=== PATIENT | female | born 1990 | race Caucasian/White ===

== ENCOUNTER 2017-11-01 06:07 | Emergency (ER) | payer MEDICAID ==
--- NOTE | 2017-11-01 07:13 | ER Document Report ---
ED Medical Screen (RME) - General Chief Complaint: Alcohol Withdrawl Stated Complaint: POSSIBLE WITHDRAWAL Time Seen by Provider: 11/01/17 07:11 Mode of Arrival: Medic Information source: Patient Notes: Pt presents via EMS with c/o methadone withdrawal. Reports no methadone for 3 days, IV Heroin at ~ 2300 last night, 3 bags and suboxone at 0400 this am. Feels like knife is in her back. Denies n/v. TRAVEL OUTSIDE OF THE [place] IN LAST 30 DAYS: No - Related Data Allergies/Adverse Reactions: No Known Drug Allergies Allergy (Verified 11/01/17 07:10) Past Medical History - Past Medical History Cardiac Medical History: Denies: Hx Hypertension, Hx Pulmonary Embolism, Hx Heart Murmur Pulmonary Medical History: Denies: Hx Asthma, Hx Sleep Apnea, Hx Tuberculosis Neurological Medical History: Denies: Hx Cerebrovascular Accident, Hx Seizures Endocrine Medical History: Denies: Hx Hyperthyroidism, Hx Hypothyroidism Renal/ Medical History: Denies: Hx Kidney Stones, Hx Ovarian Cysts, Hx Pelvic Inflammatory Disease Malignancy Medical History: Denies: Hx Breast Cancer, Hx Cervical Cancer, Hx Ovarian Cancer GI Medical History: Denies: Hx Gastroesophageal Reflux Disease, Hx Hiatal Hernia , Hx Ulcer Musculoskeltal Medical History: Denies Hx Fibromyalgia Psychiatric Medical History: Denies: Hx Bipolar Disorder, Hx Depression, Hx Post Traumatic Stress Disorder , Hx Schizophrenia Traumatic Medical History: Denies: Hx Fractures Infectious Medical History: Denies: Hx HIV - Immunizations Hx Diphtheria, Pertussis, Tetanus Vaccination: Yes Physical Exam - Vital signs Vitals: Temp Pulse Resp BP Pulse Ox 97.7 F 79 18 118/74 98 11/01/17 06:20 11/01/17 06:20 11/01/17 06:20 11/01/17 06:20 11/01/17 06:20 Course - Vital Signs Vital signs: Temp Pulse Resp BP Pulse Ox 97.7 F 79 18 118/74 98 11/01/17 06:20 11/01/17 06:20 11/01/17 06:20 11/01/17 06:20 11/01/17 06:20
[2017-11-01] MEDS ORDERED: LORAZEPAM INJ 2 MG/1 ML VIAL IM ONE (07:58)
[2017-11-01] MEDS ORDERED: KETOROLAC TROMETHAMINE 60 MG/2 ML SDV IM ONE (07:59)
[2017-11-01] MEDS ORDERED: CLONIDINE HCL 0.2 MG TABLET PO ONE (07:59)
--- NOTE | 2017-11-01 08:00 | ER Document Report ---
ED General - General Chief Complaint: Alcohol Withdrawl Stated Complaint: POSSIBLE WITHDRAWAL Time Seen by Provider: 11/01/17 07:11 Mode of Arrival: Medic Notes: Patient with long-standing history of heroin abuse. On therapy at this time. Followed by a treatment protocol in [place]. Recently moved to [facility]. Ran out of her medications. Relapsed back into heroin abuse today because she was in too much pain. Supposedly took someone Suboxone as well. This threw her into withdrawal. EMS was called. Patient complaining of back pain and body aches. Denies any excessive vomiting. Denies any suicidal ideation. States that she has resources to help with her drug problem and is just requesting something to help her with these withdrawal symptoms. Is not requesting narcotics or pain medication. No hallucinations. No chest pain. No fever, chills, sweats. Denies any pain out of the ordinary. TRAVEL OUTSIDE OF THE [place] IN LAST 30 DAYS: No - HPI Onset: Just prior to arrival Onset/Duration: Gradual Quality of pain: Achy Severity: Moderate Pain Level: 3 Associated symptoms: None - Related Data Allergies/Adverse Reactions: No Known Drug Allergies Allergy (Verified 11/01/17 07:10) Past Medical History - General Information source: Patient - Social History Smoking Status: Current Every Day Smoker Chew tobacco use (# tins/day): No Frequency of alcohol use: None Drug Abuse: Heroin, Other Family History: DM, Hypertension Patient has suicidal ideation: No Patient has homicidal ideation: No - Past Medical History Cardiac Medical History: Denies: Hx Hypertension, Hx Pulmonary Embolism, Hx Heart Murmur Pulmonary Medical History: Denies: Hx Asthma, Hx Sleep Apnea, Hx Tuberculosis Neurological Medical History: Denies: Hx Cerebrovascular Accident, Hx Seizures Endocrine Medical History: Denies: Hx Hyperthyroidism, Hx Hypothyroidism Renal/ Medical History: Denies: Hx Kidney Stones, Hx Ovarian Cysts, Hx Peritoneal Dialysis, Hx Pelvic Inflammatory Disease Malignancy Medical History: Denies: Hx Breast Cancer, Hx Cervical Cancer, Hx Ovarian Cancer GI Medical History: Denies: Hx Gastroesophageal Reflux Disease, Hx Hiatal Hernia , Hx Ulcer Musculoskeltal Medical History: Denies Hx Fibromyalgia Psychiatric Medical History: Denies: Hx Bipolar Disorder, Hx Depression, Hx Post Traumatic Stress Disorder , Hx Schizophrenia Traumatic Medical History: Denies: Hx Fractures Infectious Medical History: Denies: Hx HIV - Immunizations Hx Diphtheria, Pertussis, Tetanus Vaccination: Yes Review of Systems - Review of Systems Constitutional: See HPI, Other - Drug withdrawal EENT: No symptoms reported Cardiovascular: No symptoms reported Respiratory: No symptoms reported Gastrointestinal: No symptoms reported Genitourinary: No symptoms reported Female Genitourinary: No symptoms reported Musculoskeletal: See HPI, Back pain Skin: No symptoms reported Hematologic/Lymphatic: No symptoms reported Neurological/Psychological: No symptoms reported Physical Exam - Vital signs Vitals: Temp Pulse Resp BP Pulse Ox 97.7 F 79 18 118/74 98 11/01/17 06:20 11/01/17 06:20 11/01/17 06:20 11/01/17 06:20 11/01/17 06:20 Interpretation: Normal - General General appearance: Appears well, Alert - HEENT Head: Normocephalic, Atraumatic Eyes: Normal Pupils: PERRL - Respiratory Respiratory status: No respiratory distress Chest status: Nontender Breath sounds: Normal Chest palpation: Normal - Cardiovascular Rhythm: Regular Heart sounds: Normal auscultation Murmur: No - Abdominal Inspection: Normal Distension: No distension Bowel sounds: Normal Tenderness: Nontender Organomegaly: No organomegaly - Back Back: Normal, Nontender - Extremities General upper extremity: Normal inspection, Nontender, Normal color, Normal ROM , Normal temperature General lower extremity: Normal inspection, Nontender, Normal color, Normal ROM , Normal temperature, Normal weight bearing. No: Yolis's sign - Neurological Neuro grossly intact: Yes Cognition: Normal Orientation: AAOx4 Anitha Coma Scale Eye Opening: Spontaneous Anitha Coma Scale Verbal: Oriented [place] Coma Scale Motor: Obeys Commands Anitha Coma Scale Total: 15 Speech: Normal Motor strength normal: LUE, RUE, LLE, RLE Sensory: Normal - Psychological Associated symptoms: Normal affect, Normal mood - Skin Skin Temperature: Warm Skin Moisture: Dry Skin Color: Normal Course - Re-evaluation Re-evalutation: 11/01/17 08:54 Patient seems to have adequate resources as well as adequate fund of knowledge of of her condition at this time. We will give her clonidine, Ativan and Toradol at this time. Will prescribe some clonidine for outpatient use. Patient encouraged to follow back up with her doctor for management of her withdrawal and drug abuse problem. Patient verbalized understanding of these instructions. Will DC at this time. - Vital Signs Vital signs: Temp Pulse Resp BP Pulse Ox 97.7 F 79 18 118/74 98 11/01/17 06:20 11/01/17 06:20 11/01/17 06:20 11/01/17 06:20 11/01/17 06:20 Discharge - Discharge Clinical Impression: Acute narcotic withdrawal Condition: Good Disposition: HOME, SELF-CARE Instructions: Narcotic Abuse ([facility]) Additional Instructions: It is very important that you follow-up with your regular doctor soon as possible to get back on your treatment regimen. If you begin to develop worsening symptoms, are unable to see your regular provider, feel that you are a harm to yourself, need help with drug and alcohol treatment please return. We will try these medications first but if you have any other major issues you should return immediately. Prescriptions: Clonidine HCl 0.1 mg PO TID 7 Days #21 tablet Ibuprofen [Motrin 600 Mg Tablet] 600 mg PO TID #15 tablet
[2017-11-01 09:07] VITALS: BP 124/70
== END 2017-11-01 09:05 | disposition home or self-care (01) ==
LOC: ER 06:07
DX: F11.23 Opioid dependence with withdrawal (principal); F10.239 Alcohol dependence with withdrawal, unspecified; M54.9 Dorsalgia, unspecified; M79.1 Myalgia; F17.200 Nicotine dependence, unspecified, uncomplicated
CPT/HCPCS: 99284; 96372; J3490; J1885; J2060